=== PATIENT | male | born 1945 | race Caucasian/White ===

== ENCOUNTER → 2017-09-13 | Outpatient (CLI) | payer MEDICARE, OTHER ==
[~2017-09-13] MED LIST: REGADENOSON INJ 0.4 MG/5 ML DISP.SYRIN IV ONE
--- NOTE | 2017-09-13 12:56 | DRAGON STRESS TEST REPORT ---
INTRAVENOUS LEXISCAN CARDIOLITE STRESS TEST USING SINGLE PHOTON EMMISION COMPUTERIZED TOMOGRAPHIC. DATE OF PROCEDURE: September 13, 2017, INDICATION : Coronary artery disease CARDIAC RISK FACTORS: Chest pain, hypertension, dyslipidemia, history of CAD and status post CABG RESTING EKG: Ventricular paced rhythm. Possible atrial fibrillation as underlying rhythm. STRESS EKG: No significant ST segment changes noted with LexiScan bolus REASON FOR TERMINATION: Protocol. PROCEDURE REPORT: Baseline heart rate 82 beats per minute with blood pressure of 134/95. Patient had no significant complaints. Patient was bolused with Lexiscan 0.4 mg intravenously followed by saline bolus. Heart rate at 2 minutes post bolus 70 with a blood pressure of 132/103. 3 minutes post bolus heart rate 82 with blood pressure of 152/99. No significant EKG changes were noted. Patient had no significant complaints during the procedure or postprocedure, patient complained of lightheadedness shortness of breath and dry mouth. No chest pain reported. CONCLUSIONS: Normal EKG and hemodynamic response to IV LexiScan. NUCLEAR DATA: At rest the patient was given 11.69 millicuries of technetium 99 sestamibi injected intravenously. As per protocol rest gated SPECT images were obtained. On day of stress test, the patient was given intravenous LexiScan at a dose of 0.4 mg in 5 mL intravenously, followed by flush with normal saline. Subsequently the stress dose of 34.3 millicuries of technetium 99 sestamibi was injected intravenously. As per protocol stress gated images were obtained. NUCLEAR INTERPRETATION: Both raw and processed data were used for interpretation. Visual, qualitative, computer-generated quantitative data was used. There was good myocardial uptake of technetium compound. Motion artifact and soft tissue attenuations were noted. Increased visceral uptake was noted. No definitive areas of transient perfusion defect noted, No definitive areas of fixed perfusion defect or scars noted. EKG gated imaging showed LV EF at 48 %, rest and stress gated EF similar visually with lateral wall hypokinesia and mild septal hypokinesia. T. I D. ratio was 0.98. Lung heart ratio noted to be within normal limits 0.31. No significant extracardiac and abnormal radiotracer activities were noted. RV free wall uptake was noted to be WNL. IMPRESSION: Also refer to comments under nuclear interpretation. Also test results needs to be interpreted in the context of pretest probability. 1. No definitive areas of transient perfusion defect noted. SDS was noted to be 1 and felt to be not significant. 2. Moderate fixed defect noted in the mid lateral wall consistent with a prior myocardial infarction. 3. EKG gated imaging showed LV EF at 48 %, rest and stress gated EF similar visually with lateral wall hypokinesia and mild septal hypokinesia. 4. Clinical correlation requested as occasionally worse disease or balanced ischemia could be missed. In approximately 10% of the cases Lexiscan may not cause adequate vasodilatory stress. RECOMMENDATIONS: Aggressive risk factor modification and medical management. Further evaluation may be needed if continued symptoms or other high risk indicators are noted on clinical evaluation. Close cardiology follow-up is also recommended. Clinical correlation with echocardiogram derived ejection fraction. Inability to exercise by itself can lead to increased cardiovascular event risks. Consider cardiology consultation and or follow-up if clinically indicated. I am available for cardiology evaluation and consultation if requested by the composite science teacher, unless patient already has a postpartum rn. JENNIFER
== END ==
LOC: RAD 07:20
PROVIDERS: ATTEND Internal Medicine Cardiovascular Disease
DX: I25.10 Atherosclerotic heart disease of native coronary artery without angina pectoris (principal); R07.9 Chest pain, unspecified; I10 Essential (primary) hypertension; E78.5 Hyperlipidemia, unspecified; Z95.1 Presence of aortocoronary bypass graft
CPT/HCPCS: 93017; 78452; A9500; J2785; Q9969

== ENCOUNTER 2017-09-28 18:25 | Emergency (ER) | payer MEDICARE, OTHER ==
--- NOTE | 2017-09-28 19:47 | ER Document Report ---
ED General - General Chief Complaint: High Blood Pressure Stated Complaint: BLOOD PRESSURE ISSUE Time Seen by Provider: 09/28/17 19:16 Notes: Patient is a 72-year-old male with a past medical history of non-insulin- dependent diabetes, essential hypertension, who presents with concerns about elevated blood pressure at home. The patient states that he received a blood pressure reading at home of 189 systolic and was very worried about this. He denies any additional associated symptoms. He came to the emergency department for further assessment due to worries about how high the blood pressure was. He states that he has been taking all medications as prescribed by his primary care doctor but he feels that the recent medication changes were specifically changed his valsartan 160 mg from twice daily dosing to morning dosing only have caused his blood pressure to be more elevated in the evenings. He has not contacted his primary care doctor regarding today's concerns. TRAVEL OUTSIDE OF THE [place] IN LAST 30 DAYS: No - HPI Onset: Just prior to arrival Onset/Duration: Gradual Quality of pain: No pain Severity: None Pain Level: Denies Associated symptoms: None Exacerbated by: Denies Relieved by: Denies Similar symptoms previously: Yes Recently seen / treated by doctor: No - Related Data Allergies/Adverse Reactions: amlodipine besylate [From Norvasc] Allergy (Verified 09/28/17 18:27) chlorzoxazone [From Parafon Forte] Allergy (Verified 09/28/17 18:27) Past Medical History - General Information source: Patient - Social History Smoking Status: Former Smoker Frequency of alcohol use: None Drug Abuse: None Lives with: Spouse/Significant other Family History: Reviewed & Not Pertinent Patient has suicidal ideation: No Patient has homicidal ideation: No - Past Medical History Cardiac Medical History: Reports: Hx Congestive Heart Failure, Hx Coronary Artery Disease, Hx Heart Attack, Hx Hypercholesterolemia, Hx Hypertension Pulmonary Medical History: Reports: Hx Bronchitis, Hx Pneumonia Endocrine Medical History: Reports: Hx Diabetes Mellitus Type 2 Renal/ Medical History: Reports: Hx Kidney Stones. Denies: Hx Peritoneal Dialysis GI Medical History: Reports: Hx Gastroesophageal Reflux Disease Musculoskeltal Medical History: Reports Hx Gout Psychiatric Medical History: Reports: Hx Post Traumatic Stress Disorder - Agent Williamson exposure, [place] Past Surgical History: Reports: Hx Cardiac Catheterization, Hx Cardiac Surgery - triple by pass, pacemaker, Hx Coronary Artery Bypass Graft, Hx Coronary Stent , Hx Pacemaker, Hx Urinary Tract Surgery - kidney stone removed - Immunizations Hx Diphtheria, Pertussis, Tetanus Vaccination: No Review of Systems - Review of Systems Notes: Constitutional: Negative for fever. HENT: Negative for sore throat. Eyes: Negative for visual changes. Cardiovascular: Negative for chest pain. Respiratory: Negative for shortness of breath. Gastrointestinal: Negative for abdominal pain, vomiting or diarrhea. Genitourinary: Negative for dysuria. Musculoskeletal: Negative for back pain. Skin: Negative for rash. Neurological: Negative for headaches, weakness or numbness. 10 point ROS negative except as marked above and in HPI. Physical Exam - Vital signs Vitals: Temp Pulse Resp BP Pulse Ox 97.8 F 98 16 183/88 H 97 09/28/17 18:31 09/28/17 18:31 09/28/17 18:31 09/28/17 18:31 09/28/17 18:31 Interpretation: Hypertensive Notes: PHYSICAL EXAMINATION: GENERAL: Well-appearing, well-nourished and in no acute distress. HEAD: Atraumatic, normocephalic. EYES: Pupils equal round and reactive to light, extraocular movements intact, sclera anicteric, conjunctiva are normal. ENT: nares patent, oropharynx clear without exudates. Moist mucous membranes. NECK: Normal range of motion, supple without lymphadenopathy LUNGS: Breath sounds clear to auscultation bilaterally and equal. No wheezes rales or rhonchi. HEART: Regular rate and rhythm without murmurs ABDOMEN: Soft, nontender, normoactive bowel sounds. No guarding, no rebound. No masses appreciated. EXTREMITIES: Normal range of motion, no pitting or edema. No cyanosis. NEUROLOGICAL: No focal neurological deficits. Moves all extremities spontaneously and on command. PSYCH: Normal mood, normal affect. SKIN: Warm, Dry, normal turgor, no rashes or lesions noted. Course - Re-evaluation Re-evalutation: 09/28/17 19:46 Presentation of asymptomatic hypertension. Patient denies any symptoms concerning for SAH, dissection, RI, or encephalopaty. Alert, oriented, and denies any symptoms at time of assessment. Normal neuro exam. Per [facility] policy guidelines, will therefore not obtain any labs or EKG at this time and will not initiate new BP treatment. I have discussed critical importance of follow up with PCP within 1 week and increased risk of devastating stroke, heart attack, respiratory distress, and other life threatening complications if blood pressure is not reduced appropriately. Diet and exercise habits also discussed. At this time will discharge with return precautions and follow-up recommendations. Verbal discharge instructions given a the bedside and opportunity for questions given. Medication warnings reviewed. Patient is in agreement with this plan and has verbalized understanding of return precautions and the need for primary care follow-up in the next 24-72 hours. - Vital Signs Vital signs: Temp Pulse Resp BP Pulse Ox 97.8 F 86 18 176/84 H 100 09/28/17 18:31 09/28/17 20:00 09/28/17 20:00 09/28/17 20:00 09/28/17 20:00 Discharge - Discharge Clinical Impression: Essential hypertension Condition: Good Disposition: HOME, SELF-CARE Additional Instructions: You were seen today for blood pressure that was high. This is a long-term risk factor for multiple medical problems including heart attack and stroke. However, the blood pressure in of itself will not cause you to have an acute stroke or heart attack over the course of just several days or weeks. You need to have a gradual reduction of your blood pressure back to normal levels over the next several months in conjunction with your primary care physician. Return if you develop headache, weakness, numbness, chest pain, pass out, or have any other symptoms that are concerning to you. You may take a dose of valsartan 160 mg both in the morning and in the evening to try to prevent recurrence of elevated blood pressure in the evening time. Please do discuss this medication change with your primary doctor. Referrals: ORION NAVARRETE MD [Primary Care Provider] - Follow up as needed
[2017-09-28 20:01] VITALS: BP 176/84
== END 2017-09-28 20:01 | disposition home or self-care (01) ==
LOC: ER 18:25
DX: I10 Essential (primary) hypertension (principal); E11.9 Type 2 diabetes mellitus without complications; Z87.891 Personal history of nicotine dependence; Z79.899 Other long term (current) drug therapy; I25.10 Atherosclerotic heart disease of native coronary artery without angina pectoris; I25.2 Old myocardial infarction
CPT/HCPCS: 99283

== ENCOUNTER 2017-10-06 21:35 | Emergency (ER) | payer MEDICARE, OTHER ==
[2017-10-06 22:42] LABS: ABSOLUTE EOSINOPHILS # (AUTO) 0.2 10^3/uL (0.0-0.6); ABSOLUTE LYMPHOCYTES (AUTO) 2.7 10^3/uL (0.5-4.7); ABSOLUTE MONOCYTES (AUTO) 0.8 10^3/uL (0.1-1.4); ABSOLUTE NEUT (AUTO) 5.5 10^3/uL (1.7-8.2); BASOPHILS % (AUTO) 0.5 % (0-2); EOSINOPHILS % (AUTO) 2.6 % (0-6); HEMATOCRIT 37.6 % (37.9-51.0); HEMOGLOBIN 12.9 g/dL (13.5-17.0); MEAN CORPUSCULAR HEMOGLOBIN 30.7 pg (27.0-33.4); MEAN CORPUSCULAR HGB CONC 34.3 g/dL (32.0-36.0); MEAN CORPUSCULAR VOLUME 89 fl (80-97); MONOCYTES % (AUTO) 8.8 % (3-13); PLATELET COUNT 173 10^3/uL (150-450); RED CELL DISTRIBUTION WIDTH 13.4 % (11.5-14.0); SEGMENTED NEUTROPHILS % (AUTO) 59.1 % (42-78); TOTAL CELLS COUNTED % (AUTO) 100 %; WHITE BLOOD COUNT 9.2 10^3/uL (4.0-10.5)
[2017-10-06 22:48] LABS: INTERNATIONAL RATION (INR) 1.66; PROTHROMBIN TIME 20.4 SEC (11.4-15.4)
[2017-10-06 22:50] LABS: APPEARANCE,URINE CLEAR; BILIRUBIN,URINE NEGATIVE (NEGATIVE); COLOR,URINE STRAW; GLUCOSE, URINE NEGATIVE (NEGATIVE); KETONES,URINE NEGATIVE (NEGATIVE); LEUKOCYTE ESTERASE,URINE NEGATIVE (NEGATIVE); NITRITE,URINE NEGATIVE (NEGATIVE); PROTEIN,URINE NEGATIVE (NEGATIVE); URINE SPECIFIC GRAVITY 1.004; UROBILINOGEN,URINE NEGATIVE mg/dL (<2.0)
--- NOTE | 2017-10-06 23:39 | ER Document Report ---
ED GI/ - General Chief Complaint: Urinary Problem Stated Complaint: URINATION PAIN Time Seen by Provider: 10/06/17 23:24 Notes: Patient is a 72-year-old male comes emergency department chief complaint of hematuria. He states he noticed quite a bit of blood in his urine (a pink stream with a possible small clot) but then he urinated again and barely noticed any. He denies current bleeding. He denies trauma, flank pain, abdominal pain, nausea or vomiting. He is on Xarelto for atrial fibrillation. He does have a history of kidney stones. TRAVEL OUTSIDE OF THE [place] IN LAST 30 DAYS: No - Related Data Allergies/Adverse Reactions: amlodipine besylate [From Norvasc] Allergy (Verified 10/06/17 21:35) chlorzoxazone [From Parafon Forte] Allergy (Verified 10/06/17 21:35) Past Medical History - General Information source: Patient - Social History Smoking Status: Never Smoker Frequency of alcohol use: None Drug Abuse: None Lives with: Spouse/Significant other Family History: Reviewed & Not Pertinent - Past Medical History Cardiac Medical History: Reports: Hx Congestive Heart Failure, Hx Coronary Artery Disease, Hx Heart Attack, Hx Hypercholesterolemia, Hx Hypertension Pulmonary Medical History: Reports: Hx Bronchitis, Hx Pneumonia Endocrine Medical History: Reports: Hx Diabetes Mellitus Type 2 Renal/ Medical History: Reports: Hx Kidney Stones. Denies: Hx Peritoneal Dialysis GI Medical History: Reports: Hx Gastroesophageal Reflux Disease Musculoskeltal Medical History: Reports Hx Gout Psychiatric Medical History: Reports: Hx Post Traumatic Stress Disorder - Agent Allison exposure, [place] Past Surgical History: Reports: Hx Cardiac Catheterization, Hx Cardiac Surgery - triple by pass, pacemaker, Hx Coronary Artery Bypass Graft, Hx Coronary Stent , Hx Pacemaker, Hx Urinary Tract Surgery - kidney stone removed - Immunizations Hx Diphtheria, Pertussis, Tetanus Vaccination: No Review of Systems - Review of Systems Constitutional: No symptoms reported EENT: No symptoms reported Cardiovascular: No symptoms reported Respiratory: No symptoms reported Gastrointestinal: No symptoms reported Genitourinary: See HPI Male Genitourinary: See HPI Musculoskeletal: No symptoms reported Skin: No symptoms reported Hematologic/Lymphatic: No symptoms reported Neurological/Psychological: No symptoms reported Physical Exam - Vital signs Vitals: Temp Pulse Resp BP Pulse Ox 98.0 F 89 20 169/83 H 98 10/06/17 21:40 10/06/17 21:40 10/06/17 21:40 10/06/17 21:40 10/06/17 21:40 - Notes Notes: GENERAL: Alert, interacts well. No acute distress. HEAD: Normocephalic, atraumatic. EYES: Pupils equal, round, and reactive to light. Extraocular movements intact. ENT: Oral mucosa moist, tongue midline. NECK: Full range of motion. Supple. Trachea midline. LUNGS: Clear to auscultation bilaterally, no wheezes, rales, or rhonchi. No respiratory distress. HEART: Regular rate and rhythm. No murmur ABDOMEN: Soft, non-tender. Non-distended. Bowel sounds present in all 4 quadrants. GENITOURINARY: Unremarkable testicular, scrotum, genital exam EXTREMITIES: Moves all 4 extremities spontaneously. No edema, normal radial and dorsalis pedis pulses bilaterally. No cyanosis. BACK: no cervical, thoracic, lumbar midline tenderness. No saddle anesthesia, normal distal neurovascular exam. NEUROLOGICAL: Alert and oriented x3. Normal speech. [cranial nerves II through XII grossly intact]. PSYCH: Normal affect, normal mood. SKIN: Warm, dry, normal turgor. No rashes or lesions noted. Course - Re-evaluation Re-evalutation: Patient is well-appearing, soft abdomen, unremarkable vital signs except for initial mild hypertension which resolved. No CVA tenderness. No fever. No dysuria. Patient has a little bit of blood microscopically in the urine, he urinated again while he was here and no gross hematuria was noted despite him being on Xarelto. CBC does not show concerning hemoglobin or other remarkable finding, CAT scan shows nephrolithiasis without ureterolithiasis. Patient was already aware of the adrenal adenoma and it is not any better. No other concerning findings. Chemistry delayed due to lab error, this was finally run, patient is asking to leave, he agreed to wait until this resulted. Chemistry resulted and showed that he has an elevated creatinine at 1.86 which is elevated compared to prior at 1.2, GFR is lower as well. Patient states he has a follow-up in several days , states he will have this rechecked, states he would drink a lot of water, he is requesting to leave and declines IV fluids at this time for a recheck at this time. Discussed return precautions in regards to his chief complaint as well, provided a copy of his CAT scan report, patient and state understanding and agreement. - Vital Signs Vital signs: Temp Pulse Resp BP Pulse Ox 97.7 F 87 17 134/77 H 99 10/07/17 01:38 10/07/17 01:38 10/07/17 01:38 10/07/17 01:38 10/07/17 01:38 - Laboratory Result Diagrams: 10/06/17 22:20 10/06/17 22:20 Laboratory results interpreted by me: 10/06/17 10/06/17 10/06/17 22:20 22:20 22:20 RBC 4.20 L Hgb 12.9 L Hct 37.6 L PT 20.4 H Potassium BUN Creatinine Est GFR ( Amer) Est GFR (Non-Af Amer) Glucose Urine Blood LARGE H 10/06/17 22:20 RBC Hgb Hct PT Potassium 5.2 H BUN 71 H Creatinine 1.86 H Est GFR ( Amer) 44 L Est GFR (Non-Af Amer) 36 L Glucose 163 H Urine Blood Discharge - Discharge Clinical Impression: Hematuria Qualifiers: Hematuria type: gross Qualified Code(s): R31.0 - Gross hematuria Condition: Stable Disposition: HOME, SELF-CARE Additional Instructions: Your urine has a very small amount of blood in it. Your red blood cell counts are not concerningly low (your hemoglobin is still stable). Your kidney functioning is getting slightly worse. Your creatinine today was 1.8. Drink plenty of fluids and follow up closely with your provider for a recheck. Return for any concerning symptoms - abdominal pain, heavy bleeding, passing out , inability to urinate, etc. Referrals: ORINO NAVARRETE MD [Primary Care Provider] - Follow up as needed
--- NOTE | 2017-10-07 00:15 | RADIOLOGY REPORT (SQ) ---
EXAM DESCRIPTION: CT ABDOMEN WITHOUT IV CONTRAST CLINICAL HISTORY: 72 years Male, hematuria Comparison: None. Technique: No contrast. Coronal and sagittal reformat. This exam was performed according to our departmental dose-optimization program, which includes automated exposure control, adjustment of the mA and/or kV according to patient size and/or use of iterative reconstruction technique.[facility]: Dose Right [facility]: CareDose [facility]: Dose Right [facility]: Teradose 4D [facility]: [employer] [facility] LIMITATIONS: None Findings: 0.2 cm right renal stone. Mild bilateral perinephric fat stranding, nonspecific. Moderate colonic diverticulosis. 5.4 cm diameter prostate. 2.9 cm right adrenal adenoma. Coronary arterial consultation-stenting. Mild L5-S1 vacuum disc desiccation. Cardiac stimulator leads. Sternotomy. No ascites. Unenhanced lower thorax, abdominopelvic structures, and musculoskeleton appear otherwise grossly unremarkable. Impression: No acute findings. 0.2-cm right renal stone.
[2017-10-07 01:20] LABS: BLOOD UREA NITROGEN 71 mg/dL (7-20); GLUCOSE 163 mg/dL (75-110)
[2017-10-07 01:21] LABS: ALANINE AMINOTRANSFERASE 35 U/L (21-72); ALBUMIN 4.6 g/dL (3.5-5.0); ALKALINE PHOSPHATASE 99 U/L (38-126); ANION GAP 14 (5-19); ASPARTATE AMINO TRANSFERASE 26 U/L (17-59); BILIRUBIN,DIRECT 0.3 mg/dL (0.0-0.4); BILIRUBIN,TOTAL 0.3 mg/dL (0.2-1.3); CARBON DIOXIDE 22 mmol/L (22-30); CHLORIDE 106 mmol/L (98-107); POTASSIUM 5.2 mmol/L (3.6-5.0); SODIUM 141.6 mmol/L (137-145); TOTAL PROTEIN 7.4 g/dL (6.3-8.2)
[2017-10-07 01:38] VITALS: BP 134/77
== END 2017-10-07 01:47 | disposition home or self-care (01) ==
LOC: ER 21:35
DX: R31.0 Gross hematuria (principal); N20.0 Calculus of kidney; R79.89 Other specified abnormal findings of blood chemistry; D35.01 Benign neoplasm of right adrenal gland; E11.9 Type 2 diabetes mellitus without complications; I25.10 Atherosclerotic heart disease of native coronary artery without angina pectoris; I10 Essential (primary) hypertension; I48.91 Unspecified atrial fibrillation; Z79.01 Long term (current) use of anticoagulants; Z88.8 Allergy status to other drugs, medicaments and biological substances; Z95.1 Presence of aortocoronary bypass graft; Z95.5 Presence of coronary angioplasty implant and graft
CPT/HCPCS: 36415; 76380; 80053; 81001; 85025; 85610; 99284

== ENCOUNTER 2018-09-06 15:30 | Emergency (ER) | payer MEDICARE, OTHER ==
--- NOTE | 2018-09-06 16:33 | ER Document Report ---
ED Medical Screen (RME) - General Chief Complaint: Diarrhea Stated Complaint: DIARRHEA Time Seen by Provider: 09/06/18 16:32 Primary Care Provider: ORION NAVARRETE MD [Primary Care Provider] - Follow up as needed Mode of Arrival: Ambulatory Information source: Patient Notes: Patient presents complaining of diarrhea for the past 3 days. Patient has been taking [id number] antidiarrheal medications without improvement. Patient does complain of some generalized abdominal pain and nausea. Patient denies any fever. Patient denies any blood in the stool. I have greeted and performed a rapid initial assessment of this patient. A comprehensive ED assessment and evaluation of the patient, analysis of test results and completion of the medical decision making process will be conducted by additional ED providers. TRAVEL OUTSIDE OF THE [place] IN LAST 30 DAYS: No - Related Data Allergies/Adverse Reactions: amlodipine besylate [From Norvasc] Allergy (Verified 09/06/18 15:32) chlorzoxazone [From Parafon Forte] Allergy (Verified 09/06/18 15:32) Past Medical History - Past Medical History Cardiac Medical History: Reports: Hx Congestive Heart Failure, Hx Coronary Artery Disease, Hx Heart Attack, Hx Hypercholesterolemia, Hx Hypertension Pulmonary Medical History: Reports: Hx Bronchitis, Hx Pneumonia Endocrine Medical History: Reports: Hx Diabetes Mellitus Type 2 Renal/ Medical History: Reports: Hx Kidney Stones. Denies: Hx Peritoneal Dialysis GI Medical History: Reports: Hx Gastroesophageal Reflux Disease Musculoskeltal Medical History: Reports Hx Gout Psychiatric Medical History: Reports: Hx Post Traumatic Stress Disorder - Agent Childress exposure, [place] Past Surgical History: Reports: Hx Cardiac Catheterization, Hx Cardiac Surgery - triple by pass, pacemaker, Hx Coronary Artery Bypass Graft, Hx Coronary Stent, Hx Pacemaker, Hx Urinary Tract Surgery - kidney stone removed - Immunizations Hx Diphtheria, Pertussis, Tetanus Vaccination: No Physical Exam - Vital signs Vitals: Temp Pulse Resp BP Pulse Ox 97.8 F 86 17 149/76 H 97 09/06/18 15:36 09/06/18 15:36 09/06/18 15:36 09/06/18 15:36 09/06/18 15:36 - Abdominal Tenderness: Tender - Generalized abdomen Course - Vital Signs Vital signs: Temp Pulse Resp BP Pulse Ox 97.8 F 86 17 149/76 H 97 09/06/18 15:36 09/06/18 15:36 09/06/18 15:36 09/06/18 15:36 09/06/18 15:36 Doctor's Discharge - Discharge Referrals: ORION NAVARRETE MD [Primary Care Provider] - Follow up as needed
[2018-09-06 17:26] LABS: ABSOLUTE EOSINOPHILS # (AUTO) 0.1 10^3/uL (0.0-0.6); ABSOLUTE LYMPHOCYTES (AUTO) 1.4 10^3/uL (0.5-4.7); ABSOLUTE MONOCYTES (AUTO) 0.6 10^3/uL (0.1-1.4); ABSOLUTE NEUT (AUTO) 4.6 10^3/uL (1.7-8.2); BASOPHILS % (AUTO) 0.2 % (0-2); EOSINOPHILS % (AUTO) 1.1 % (0-6); HEMATOCRIT 35.8 % (37.9-51.0); LYMPHOCYTES % (AUTO) 20.8 % (13-45); MEAN CORPUSCULAR HEMOGLOBIN 30.4 pg (27.0-33.4); MEAN CORPUSCULAR HGB CONC 33.5 g/dL (32.0-36.0); MEAN CORPUSCULAR VOLUME 91 fl (80-97); MONOCYTES % (AUTO) 8.7 % (3-13); PLATELET COUNT 130 10^3/uL (150-450); RED BLOOD COUNT 3.95 10^6/uL (4.35-5.55); RED CELL DISTRIBUTION WIDTH 13.8 % (11.5-14.0); SEGMENTED NEUTROPHILS % (AUTO) 69.2 % (42-78); TOTAL CELLS COUNTED % (AUTO) 100 %; WHITE BLOOD COUNT 6.7 10^3/uL (4.0-10.5)
[2018-09-06 17:40] LABS: ALANINE AMINOTRANSFERASE 41 U/L (21-72); ALBUMIN 3.9 g/dL (3.5-5.0); ALKALINE PHOSPHATASE 90 U/L (38-126); ANION GAP 11 (5-19); ASPARTATE AMINO TRANSFERASE 38 U/L (17-59); BILIRUBIN,DIRECT 0.3 mg/dL (0.0-0.4); BILIRUBIN,TOTAL 0.3 mg/dL (0.2-1.3); BLOOD UREA NITROGEN 58 mg/dL (7-20); CALCIUM 9.1 mg/dL (8.4-10.2); CARBON DIOXIDE 19 mmol/L (22-30); CHLORIDE 108 mmol/L (98-107); GLUCOSE 104 mg/dL (75-110); LIPASE 172.3 U/L (23-300); POTASSIUM 4.1 mmol/L (3.6-5.0); SODIUM 137.7 mmol/L (137-145); TOTAL PROTEIN 6.6 g/dL (6.3-8.2)
[2018-09-06 18:35] LABS: APPEARANCE,URINE CLEAR; BILIRUBIN,URINE NEGATIVE (NEGATIVE); COLOR,URINE STRAW; GLUCOSE, URINE NEGATIVE (NEGATIVE); KETONES,URINE NEGATIVE (NEGATIVE); LEUKOCYTE ESTERASE,URINE NEGATIVE (NEGATIVE); NITRITE,URINE NEGATIVE (NEGATIVE); PROTEIN,URINE NEGATIVE (NEGATIVE); URINE SPECIFIC GRAVITY 1.008; UROBILINOGEN,URINE NEGATIVE mg/dL (<2.0)
[2018-09-06] MEDS ORDERED: RINGERS SOLUTION,LACTATED 1,000 ML IV ONE (19:22)
--- NOTE | 2018-09-06 20:18 | ER Document Report ---
ED General - General Chief Complaint: Diarrhea Stated Complaint: DIARRHEA Time Seen by Provider: 09/06/18 16:32 Primary Care Provider: ORION NAVARRETE MD [Primary Care Provider] - Follow up as needed Mode of Arrival: Ambulatory Notes: Patient is a 73-year-old male with a past medical history of diabetes, hypertension, presents for 48 hours of diarrhea. States that he is having watery diarrhea approximately 1-2 times per hour although notes that he has started slow down since he arrived here in the emergency department as he did take loperamide twice a day. States that the diarrhea is watery, no blood or blackness to the stool. Denies any vomiting but states that he has been some what nauseated. He denies any abdominal pain although notes he has had some intermittent cramping around the episodes of diarrhea. Currently denies any abdominal discomfort of any kind. He denies any lightheadedness or syncope. Denies history of recent antibiotic use. No history of similar symptoms in the past. States that eating seems to worsen his diarrhea. Loperamide seems to help his symptoms. Has not seen his primary care physician regarding today's concerns. Has been able to tolerate oral intake without difficulty. TRAVEL OUTSIDE OF THE [place] IN LAST 30 DAYS: No - Related Data Allergies/Adverse Reactions: amlodipine besylate [From Norvasc] Allergy (Verified 09/06/18 15:32) chlorzoxazone [From Parafon Forte] Allergy (Verified 09/06/18 15:32) Past Medical History - General Information source: Patient - Social History Smoking Status: Former Smoker Frequency of alcohol use: None Drug Abuse: None Lives with: Spouse/Significant other Family History: Reviewed & Not Pertinent Patient has suicidal ideation: No Patient has homicidal ideation: No - Past Medical History Cardiac Medical History: Reports: Hx Congestive Heart Failure, Hx Coronary Artery Disease, Hx Heart Attack, Hx Hypercholesterolemia, Hx Hypertension Pulmonary Medical History: Reports: Hx Bronchitis, Hx Pneumonia Endocrine Medical History: Reports: Hx Diabetes Mellitus Type 2 Renal/ Medical History: Reports: Hx Kidney Stones. Denies: Hx Peritoneal Dialysis GI Medical History: Reports: Hx Gastroesophageal Reflux Disease Musculoskeletal Medical History: Reports Hx Gout Psychiatric Medical History: Reports: Hx Post Traumatic Stress Disorder - Agent [place] exposure, [place] Past Surgical History: Reports: Hx Cardiac Catheterization, Hx Cardiac Surgery - triple by pass, pacemaker, Hx Coronary Artery Bypass Graft, Hx Coronary Stent, Hx Pacemaker, Hx Urinary Tract Surgery - kidney stone removed - Immunizations Hx Diphtheria, Pertussis, Tetanus Vaccination: No Review of Systems - Review of Systems Notes: Constitutional: Negative for fever. HENT: Negative for sore throat. Eyes: Negative for visual changes. Cardiovascular: Negative for chest pain. Respiratory: Negative for shortness of breath. Gastrointestinal: Negative for abdominal pain, positive for diarrhea Genitourinary: Negative for dysuria. Musculoskeletal: Negative for back pain. Skin: Negative for rash. Neurological: Negative for headaches, weakness or numbness. 10 point ROS negative except as marked above and in HPI. Physical Exam - Vital signs Vitals: Temp Pulse Resp BP Pulse Ox 97.8 F 86 17 149/76 H 97 09/06/18 15:36 09/06/18 15:36 09/06/18 15:36 09/06/18 15:36 09/06/18 15:36 Interpretation: Hypertensive Notes: PHYSICAL EXAMINATION: GENERAL: Well-appearing, well-nourished and in no acute distress. HEAD: Atraumatic, normocephalic. EYES: Pupils equal round and reactive to light, extraocular movements intact, sclera anicteric, conjunctiva are normal. ENT: nares patent, oropharynx clear without exudates. Moist mucous membranes. NECK: Normal range of motion, supple without lymphadenopathy LUNGS: Breath sounds clear to auscultation bilaterally and equal. No wheezes rales or rhonchi. HEART: Regular rate and rhythm without murmurs ABDOMEN: Soft, nontender, normoactive bowel sounds. No guarding, no rebound. No masses appreciated. EXTREMITIES: Normal range of motion, no pitting or edema. No cyanosis. NEUROLOGICAL: No focal neurological deficits. Moves all extremities spontaneously and on command. PSYCH: Normal mood, normal affect. SKIN: Warm, Dry, normal turgor, no rashes or lesions noted. Course - Re-evaluation Re-evalutation: 09/06/18 20:09 Presentation of an overall well-appearing patient in no acute distress with complaints of recurrent diarrhea. Diarrhea has slowed significantly the last several hours the patient is only had one bowel movement in the past 5 hours. No melena or hematochezia. Patient has no abdominal tenderness on exam and specifically no tenderness in the RLQ, LLQ, RUQ. Overall well hydrated on exam. Able to tolerate oral intake here in the emergency department. Low clinical suspicion for any acute life-threatening etiology based on exam and history including acute cholecystitis, SBO, appendicitis, nephrolithiasis, or pylonephritis. CMP without evidence of acute hepatitis, chronic kidney dysfunction effectively unchanged from previous. C. difficile negative. At this time will discharge with return precautions and follow-up recommendations. Verbal discharge instructions given a the bedside and opportunity for questions given. Medication warnings reviewed. Patient is in agreement with this plan and has verbalized understanding of return precautions and the need for primary care follow-up in the next 24-72 hours. - Vital Signs Vital signs: Temp Pulse Resp BP Pulse Ox 97.8 F 86 17 149/76 H 97 09/06/18 15:36 09/06/18 15:36 09/06/18 15:36 09/06/18 15:36 09/06/18 15:36 - Laboratory Result Diagrams: 09/06/18 17:10 09/06/18 17:10 Laboratory results interpreted by me: 09/06/18 09/06/18 09/06/18 17:10 17:10 17:50 RBC 3.95 L Hgb 12.0 L Hct 35.8 L Plt Count 130 L Chloride 108 H Carbon Dioxide 19 L BUN 58 H Creatinine 2.03 H Est GFR ( Amer) 39 L Est GFR (Non-Af Amer) 32 L Urine Blood SMALL H Discharge - Discharge Clinical Impression: Diarrhea Qualifiers: Diarrhea type: presumed infectious Qualified Code(s): R19.7 - Diarrhea, unspecified Chronic kidney disease Qualifiers: Chronic kidney disease stage: unspecified stage Qualified Code(s): N18.9 - Chronic kidney disease, unspecified Condition: Fair Disposition: HOME, SELF-CARE Additional Instructions: Your symptoms are likely due to a viral illness and should resolve in the next several days. You can take [id number] loperamide also known as Imodium as needed for diarrhea per box instructions. Advised against taking this medication if you are not being at least a bowel movement on an hourly basis. Continue to stay hydrated with plenty of solution such as Gatorade or Pedialyte. Please return if you develop severe abdominal pain, pass out, become unable to tolerate any oral fluids for 12 more hours, or any other symptoms that are concerning to you. Referrals: ORION NAVARRETE MD [Primary Care Provider] - Follow up as needed
[2018-09-06 22:25] VITALS: BP 145/70
[2018-09-06] MEDS ORDERED: FENTANYL CITRATE INJ/PF 100 MCG/2 ML AMPUL ONE (22:27)
== END 2018-09-06 22:24 | disposition home or self-care (01) ==
LOC: ER 15:30
DX: R19.7 Diarrhea, unspecified (principal); N18.9 Chronic kidney disease, unspecified; E11.22 Type 2 diabetes mellitus with diabetic chronic kidney disease; I13.0 Hypertensive heart and chronic kidney disease with heart failure and stage 1 through stage 4 chronic kidney disease, or unspecified chronic kidney disease; I50.9 Heart failure, unspecified; Z87.442 Personal history of urinary calculi; Z95.0 Presence of cardiac pacemaker; Z95.1 Presence of aortocoronary bypass graft
CPT/HCPCS: 99284; 96360; 36415; 87045; 83690; 85025; 80053; 81001; 87493; J7120; 87205